=== PATIENT | male | born 1995 | race Caucasian/White ===

== ENCOUNTER 2016-11-12 21:01 | Emergency (ER) | payer BC ==
--- NOTE | 2016-11-12 21:10 | EDPHY ---
H & P Stated Complaint: ETOH Source: Patient, Police, EMS Exam Limitations: Intoxication - Personal History Tetanus Vaccine Date: CU < 5 years - Medical/Surgical History Hx Asthma: Yes Hx Chronic Respiratory Disease: No Hx Diabetes: No Hx Cardiac Disease: No Hx Renal Disease: No Hx Cirrhosis: No Hx Alcoholism: No Hx HIV/AIDS: No Hx Splenectomy or Spleen Trauma: No Other PMH: hx. exercise induced asthma, depression - Social History Smoking Status: Light smoker Time Seen by Provider: 11/12/16 21:08 Constitutional: Initial Vital Signs Temperature (C) 36.8 C 11/12/16 21:05 Heart Rate 125 H 11/12/16 21:05 Respiratory Rate 16 11/12/16 21:05 Blood Pressure 132/71 H 11/12/16 21:05 O2 Sat (%) 94 11/12/16 21:05 O2 Delivery Mode Nasal Cannula O2 (L/minute) 2 Allergies/Adverse Reactions: No Known Allergies Allergy (Unverified 11/12/16 22:30) Home Medications: Medication Instructions Recorded Loratadine [Claritin 10 mg] 10 mg PO DAILY 09/05/15 Ascorbic Acid [Vitamin C 500 mg 500 mg PO DAILY #0 tab 09/07/15 (*)] Calcium Carbonate [Oyster Shell 500 mg PO DAILY #0 tab 09/07/15 Calcium 500 mg (*)] Multivitamins [Multivitamin (*)] 1 each PO DAILY #0 tab 09/07/15 Olanzapine [Zyprexa] 10 mg PO HS #30 tablet 09/07/15 Stark-3 Fatty Acids [Fish Oil 1000 2,000 mg PO DAILY #0 cap 09/07/15 mg (*)] Medical Decision Making ED Course/Re-evaluation: CHIEF COMPLAINT: Alcohol intoxication HISTORY OF PRESENT ILLNESS: The patient is a university student. Patient was found by bystanders to be severely intoxicated and therefore they called the police. Upon police arrival bystanders were trying to hold patient of while walking, he was bent over when he fell and hit his forehead on the pavement. No loss of consciousness. Patient denies coingestion. REVIEW OF SYSTEMS: Unable to obtain due to intoxication PHYSICAL EXAM: General Appearance: Awake, well hydrated, slurred speech and non-toxic appearing. Head: Superficial abrasion to forehead Eyes: Pupils equal, round, reactive to light and accommodation, EOMI, no trauma , nystagmus. Ears: Clear bilaterally, no perforation, normal landmarks, no hemotympanum Nose: Atraumatic, no rhinorrhea, clear, no septal hematoma. Throat: There is no erythema or exudates, no lesions, normal tonsils, mucus membranes moist. Neck: Patient arrives in C-collar Respiratory: No retractions, no distress, no wheezes, and no accessory muscle use. Lungs are clear to auscultation bilaterally. Cardiovascular: Regular rate and rhythm, no murmurs, rubs, or gallops. Good capillary refill all extremities. Gastrointestinal: Abdomen is soft, non-tender, non-distended, no masses, no rebound, no guarding, no peritoneal signs. Musculoskeletal: Normal active ROM of all extremities, atraumatic. Neurological: No facial asymmetry, moves all extremities, follows commands Skin: No rashes, good turgor, no nodules on palpation. PAST MEDICAL HISTORY: Unable to obtain PAST SURGICAL HISTORY: Unable to obtain SOCIAL HISTORY: Unable to obtain MEDICAL DECISION MAKINpm- Pt climbing out of bed, placing himself in danger as he is unstable on his feet. Pt given 1mg of lorazepam that did not sedate him, he was then given 5mg of IV Haldol. 10pm- Pt to CT scan with security at bedside. I serially examined this patient since the patient's arrival here in the emergency department. 11pm- Pt sleeping, on monitor, respirations even labored. 1200pm- Pt continues sleeping. On continuous monitor. 0100am- Report passed on to dr. Garcia at the end of my shift pending sobriety. (Christa Santacruz) 0100 care assumed by me from ANTIONE Santacruz pending sobriety to the point that he can go to the [facility]. Patient has negative head and neck CTs. Alcohol in the 400s. Has required Ativan and Haldol in the ED for behavior control. 0520 patient is awake and alert. He is ambulating unassisted to the bathroom. He is currently without complaints. He is medically cleared for the [facility]. (Mauro Garcia) - Data Points Laboratory Results: 11/12/16 21:40 Ethyl Alcohol 338 mg/dL H mg/dL (0-10) Medications Given: Discontinued Medications Haloperidol Lactate (Haldol Injection) 5 mg IVP EDNOW ONE Stop: 11/12/16 22:37 Last Admin: 11/12/16 21:55 Dose: 5 mg Haloperidol Lactate (Haldol Injection) 5 mg IVP EDNOW ONE Stop: 11/12/16 22:37 Last Admin: 11/12/16 21:40 Dose: 5 mg Sodium Chloride (Ns) 1,000 mls @ 0 mls/hr IV ONCE ONE PRN Reason: Wide Open Stop: 11/12/16 21:52 Last Admin: 11/12/16 21:50 Dose: 1,000 mls Lorazepam (Ativan Injection) 1 mg IVP EDNOW ONE Stop: 11/12/16 22:37 Last Admin: 11/12/16 21:40 Dose: 1 mg Lorazepam (Ativan Injection) 2 mg IVP EDNOW ONE Stop: 11/12/16 23:43 Last Admin: 11/12/16 23:43 Dose: 2 mg Lorazepam (Ativan Injection) 1 mg IVP EDNOW ONE Stop: 11/13/16 00:52 Last Admin: 11/13/16 00:51 Dose: 1 mg Departure - Departure Disposition: Home, Routine, Self-Care Clinical Impression: Alcoholic intoxication Qualifiers: Complication of substance-induced condition: uncomplicated Qualified Code(s): F10.120 - Alcohol abuse with intoxication, uncomplicated Head injury Qualifiers: Encounter type: initial encounter Qualified Code(s): S09.90XA - Unspecified injury of head, initial encounter Condition: Good Instructions: Head Injury (ED), Alcohol Intoxication (ED) Additional Instructions: Stop drinking alcohol. Return to the emergency department for any forceful vomiting, confusion, altered gait, any other questions or concerns. Referrals: Patient,NotPresent [Primary Care Provider] - As per Instructions
[2016-11-12] MEDS ORDERED: LORazepam 2 MG/ML INJ ONE (21:30)
[2016-11-12] MEDS ORDERED: HALOPERIDOL LACT 5 MG/ML INJ ONE ×2 (21:42→21:54)
[2016-11-12] MEDS ORDERED: NS 1,000 ML IV ONE (21:51)
[2016-11-12 22:16] LABS: ETHANOL SERUM 338 mg/dL (0-10)
[2016-11-12 22:35] VITALS: RESP 16; TEMP 98.2
[2016-11-12] MEDS ORDERED: LORazepam 2 MG/ML INJ IVP ONE ×2 (22:36→23:42)
[2016-11-12] MEDS ORDERED: HALOPERIDOL LACT 5 MG/ML INJ IVP ONE ×2 (22:36)
[2016-11-13 00:10] VITALS: O2SAT 96
[2016-11-13] MEDS ORDERED: LORazepam 2 MG/ML INJ IVP ONE (00:51)
[2016-11-13 05:30] VITALS: BP 131/74; PULSE 74
== END 2016-11-13 05:37 | disposition home or self-care (01) ==
LOC: EDUNIT#
DX: S09.90XA Unspecified injury of head, initial encounter (principal); F10.120 Alcohol abuse with intoxication, uncomplicated; J45.909 Unspecified asthma, uncomplicated; F17.200 Nicotine dependence, unspecified, uncomplicated; W18.09XA Striking against other object with subsequent fall, initial encounter
CPT/HCPCS: 96374; G0480; J2060